=== PATIENT | female | born 1990 | race Hispanic/Latino ===

== ENCOUNTER 2018-07-11 01:13 | Emergency (ER) | payer OTHER ==
[2018-07-11] MEDS ORDERED: Sodium Chloride 0.9% 1,000 ML IV STA (01:48)
[2018-07-11 01:56] LABS: BASO % 0.2 % (0.0-2.0); EOS # 0.1 K/uL (0.0-0.7); EOS % 0.5 % (0.0-4.0); HEMOGLOBIN 12.8 g/dL (12.0-16.0); LYMPH # 1.7 K/uL (1.0-4.3); LYMPH % 7.7 % (20.0-40.0); MEAN CELL VOLUME 89.1 fl (81.0-99.0); MEAN CORPUSCULAR HEMOGLOBIN 30.5 pg (27.0-31.0); MEAN CORPUSCULAR HGB CONC 34.3 g/dL (33.0-37.0); MONO # 1.3 K/uL (0.0-0.8); MONO % 5.9 % (0.0-10.0); NEUT # 18.5 K/uL (1.8-7.0); NEUT % 85.7 % (50.0-75.0); PLATELET COUNT 212 K/uL (130-400); RBC 4.19 Mil/uL (3.80-5.20); WHITE BLOOD COUNT 21.6 K/uL (4.8-10.8)
[2018-07-11 02:07] LABS: BLOOD UREA NITROGEN 6 mg/dl (7-17); CALCIUM 10.1 mg/dL (8.4-10.2); GFR NON-AFRICAN AMERICAN > 60
--- NOTE | 2018-07-11 03:21 | ED PDOC ---
HPI: Female Pain Time Seen by Provider: 07/11/18 01:23 Chief Complaint (Nursing): Female Genitourinary Chief Complaint (Provider): Female Genitourinary History Per: Patient History/Exam Limitations: no limitations Onset/Duration Of Symptoms: Days (x 1) Current Symptoms Are (Timing): Still Present Quality Of Discomfort: Cramping, "Pain" Additional Complaint(s): 28 year old female () with a history of prior miscarriage at 6 weeks presents to the ED with lower abdominal cramping and mild vaginal bleeding since yesterday. Patient reports lower abdominal cramping all day yesterday and mild vaginal bleeding since midnight, prompting ED visit. Of note , she had an US done at the end of May that was normal. Since arrival to ED, she passed a blood clot. Offers no other medical complaints. OBGYN: Dr. Katie Ritter MD Abnormal Vaginal Bleeding: Yes : 2 Para: 0 Miscarriage: 1 Past Medical History Reviewed: Historical Data, Nursing Documentation, Vital Signs Vital Signs: Last Vital Signs Temp 98.3 F 07/11/18 01:15 Pulse 83 07/11/18 01:15 Resp 16 07/11/18 01:15 BP 118/78 07/11/18 01:15 Pulse Ox 98 07/11/18 01:15 - Medical History PMH: No Chronic Diseases - Surgical History Surgical History: No Surg Hx - Family History Family History: States: Unknown Family Hx - Allergies Allergies/Adverse Reactions: Allergies Allergy/AdvReac Type Severity Reaction Status Date / Time cefprozil [From Cefzil] Allergy RASH Verified 07/11/18 01:22 Penicillins Allergy RASH Verified 07/11/18 01:22 Review of Systems ROS Statement: Except As Marked, All Systems Reviewed And Found Negative Gastrointestinal: Positive for: Abdominal Pain (lower; cramping) Genitourinary Female: Positive for: Vaginal Bleeding (mild ) Physical Exam - Reviewed Nursing Documentation Reviewed: Yes Vital Signs Reviewed: Yes - Physical Exam Appears: Positive for: Non-toxic, No Acute Distress Head Exam: Positive for: ATRAUMATIC, NORMAL INSPECTION, NORMOCEPHALIC Skin: Positive for: Normal Color, Warm, Dry Eye Exam: Positive for: EOMI, Normal appearance, PERRL Neck: Positive for: Normal, Painless ROM, Supple Cardiovascular/Chest: Positive for: Regular Rate, Rhythm. Negative for: Murmur Respiratory: Positive for: Normal Breath Sounds. Negative for: Wheezing, Respiratory Distress Gastrointestinal/Abdominal: Positive for: Soft, Tenderness (tenderness at bilateral lower abdomen), Other (gravid uterus ) Extremity: Positive for: Normal ROM. Negative for: Deformity Neurologic/Psych: Positive for: Alert, Oriented (x 3). Negative for: Motor/ Sensory Deficits - Laboratory Results Result Diagrams: 07/11/18 01:53 07/11/18 01:53 - ECG O2 Sat by Pulse Oximetry: 98 (RA) Pulse Ox Interpretation: Normal Medical Decision Making Medical Decision Makin:34 A & P: Impression: threatened miscarriage vs spontaneous miscarriage Orders: --Blood type --BMP --Beta HCG --Urine preg --Urine dip --CBC --NS IV --Zofran Inj 4 mg IVP 03:00 --Patient spontaneously delivered fetus followed by intact placenta. --Rhogam and Tylenol 975 mg ordered. --Patient consented to sending fetus to lab 04:00 --Rhogam given --Advised patient to reach Dr. Ritter tomorrow for outpatient followup --Comfort provided to patient and --Patient tolerating PO, appears well appearing Scribe Attestation: Documented by Ruba Taylor acting as a scribe for Rios Bartholomew MD Provider Scribe Attestation: All medical record entries made by the Scribe were at my direction and personally dictated by me. I have reviewed the chart and agree that the record accurately reflects my personal performance of the history, physical exam, medical decision making, and the department course for this patient. I have also personally directed, reviewed, and agree with the discharge instructions and disposition. Disposition - Clinical Impression Clinical Impression: Spontaneous miscarriage - Patient ED Disposition Is Patient to be Admitted: No - Disposition Referrals: Katie Ritter MD [Family Provider] - Disposition: Routine/Home Disposition Time: 04:01 Condition: STABLE Instructions: Dealing With Miscarriage, Miscarriage Forms: [employer] Connect (N[place]ali)
[2018-07-11 03:46] LABS: ACANTHOCYTES SLIGHT; ANISOCYTOSIS SLIGHT; EOSINOPHIL 2 % (0-7); HYPOCHROMIC SLIGHT; LYMPHOCYTE 5 % (20-50); MONOCYTE 6 % (0-10); NEUTROPHIL 87 % (42-75); PLATELET ESTIMATE NORMAL (NORMAL); TOTAL CELLS COUNTED 100
[2018-07-11 04:52] VITALS: BP 118/57; PULSE 68; RESP 17; TEMP 98.2; O2SAT 97
== END 2018-07-11 04:51 | disposition home or self-care (01) ==
LOC: H.ER 01:13
DX: O03.9 Complete or unspecified spontaneous abortion without complication (principal); Z3A.16 16 weeks gestation of pregnancy; Z88.0 Allergy status to penicillin
CPT/HCPCS: 80048; 84702; 85025; 86850; 86900; 88305; 96361; 96374; 99284; J2405; J2792; J7030